=== PATIENT | female | born 1955 | race Caucasian/White ===

== ENCOUNTER 2018-01-07 10:59 | Outpatient (CLI) | payer BC | END 2018-01-07 11:00 | disposition home or self-care (01) | LOC: BICMAMMO 10:59 | PROVIDERS: ATTEND Obstetrics & Gynecology | DX: Z12.31 Encounter for screening mammogram for malignant neoplasm of breast (principal); Z13.820 Encounter for screening for osteoporosis; M85.89 Other specified disorders of bone density and structure, multiple sites; R92.1 Mammographic calcification found on diagnostic imaging of breast | CPT/HCPCS: 77063; 77067; 77080 ==

== ENCOUNTER 2018-05-27 05:39 | Day surgery (SDC) | payer BC ==
[2018-05-26 09:43] VITALS: BMI 33.6
[2018-05-27] MEDS ORDERED: Fentanyl 100 MCG/2 ML VIAL ONE ×2 (06:40→06:54)
[2018-05-27] MEDS ORDERED: Midazolam HCl 2 mg/2 ml Vial ONE ×2 (06:40→06:54)
[2018-05-27] MEDS ORDERED: Bupivacaine PF 0.5% 30 ML VIAL ONE (06:49)
[2018-05-27] MEDS ORDERED: Bacitracin Zinc Ointment 30 gm TUBE ONE (06:49)
[2018-05-27] MEDS ORDERED: Propofol 500 MG/50 ML VIAL ONE (06:54)
[2018-05-27 06:55] LABS: Bilirubin Negative (Negative); Blood, Urine Large (Negative); Clarity CLEAR (Clear); Glucose, Urine (Dipstick) Negative (Negative); Leukocyte Trace (Negative); Nitrite Negative (Negative); Protein, Urine (Dipstick) 30 mg/dL (Neg-Trace); Specific Gravity, Urine 1.013 (1.002-1.036); Urobilinogen 0.2 mg/dL (0.2-1.0)
[2018-05-27 07:01] LABS: Urine Culture Reflex No No
[2018-05-27] MEDS ORDERED: Lidocaine 1% (PF) 30 ML VIAL ONE (07:06)
[2018-05-27] MEDS ORDERED: CEFAZOLIN 2 GM/50 ML BAG ONE ×2 (07:15)
[2018-05-27 07:16] LABS: White Blood Cell (WBC) Count 7.5 thou/uL (4.8-10.8)
[2018-05-27 07:17] LABS: #Basophils 0.1 thou/uL (0.0-0.2); #Eosinphils 0.4 thou/uL (0.0-0.7); #Lymphocytes 2.1 thou/uL (1.20-3.40); #Monocytes 0.6 thou/uL (0.11-0.59); #Neutrophils 4.3 thou/uL (1.40-6.50); %Basophils 1.1 % (0.0-1.0); %Eosinophils 5.9 % (0.0-10.0); %Lymphocytes 28.4 % (21.0-51.0); %Monocytes 7.6 % (0.0-10.0); %Neutrophils 57.1 % (42.0-75.0); Hemoglobin 12.5 g/dL (12.0-16.0); Mean Corpuscular HGB CONC 33.1 g/dL (32.0-36.0); Mean Corpuscular Hemoglobin 29.7 pg (27.0-31.0); Mean Corpuscular Volume 89.9 fL (78.0-98.0); Mean Platelet Volume 8.1 fL (7.4-10.4); Platelet Count 283 thou/uL (130-400); RBC Distribution Width 12.2 % (11.5-14.5)
[2018-05-27] MEDS ORDERED: Betamet Acet/Betamet Na Ph 30 MG/5 ML VIAL ONE (07:26)
[2018-05-27] MEDS ORDERED: Ketorolac Tromethamine 30 MG/ML VIAL ONE ×2 (08:50→16:02)
--- NOTE | 2018-05-27 12:39 | OP ---
DATE OF PROCEDURE: 05/27/2018 PREOPERATIVE DIAGNOSES: 1. Left hand Dupuytren's nodule. 2. Left middle finger A1 trigger digit. 3. Left middle finger flexor tenosynovitis. POSTOPERATIVE DIAGNOSES: 1. Left hand Dupuytren's nodule. 2. Left middle finger A1 trigger digit. 3. Left middle finger flexor tenosynovitis. PROCEDURE PERFORMED: 1. Left Dupuytren's nodule excision, middle finger palm. 2. Left middle finger A1 ashok release. 3. Left flexor digitorum superficialis and profundus radical flexor tenosynovectomy. 4. Left middle finger digital nerve neuroplasty. 5. Steroid injection, at end of procedure, 3 mL of betamethasone. SPECIMENS: 1. Left middle finger tenosynovium. 2. Left middle finger Dupuytren's nodule. COMPLICATIONS: None. TOURNIQUET TIME: 9 minutes. INDICATIONS: The patient with both painful nodule and triggering with swelling admittedly of the entire digit and stage 3 to 4 trigger, failed conservative treatment. DESCRIPTION OF PROCEDURE: After successful block anesthesia by Dr. Chambers, [facility], the patient was brought to the room, prepped and draped. Time-out was done appropriately identifying the long finger as the site of both A1 ashok triggering and the nodule, where the nodule was palpable and was approximately 9 mm. We made a zigzag incision using the normal long finger flexor crease in the MP joint and then Aleyda type incision to extend approximately 5 mm, where the nodule was located. This was carried after exsanguination of the limb and inflation of the tourniquet to 250 mmHg pressure. Incision was carried through the skin and subcutaneous tissue and the nodule was found to be almost 1 cm in width and approximately 4 mm in depth. It was almost adherent to the digital nerve on the radial side of the middle finger that required a formal neuroplasty over 2 cm area to separate it from the nerve. We then lifted it out along with some skin and the overlying portion over the flexor tendon sheath. Flexor tendon sheath from here into the A1 ashok was quite edematous to perform a formal flexor tenosynovectomy of the digitorum profundus and superficialis. The specimen would now be the harvested nodule with skin as well as the flexor tenosynovium. We then released the A1 ashok with a [place] blade in midline, inspected the flexor tendon, there was no mass seen deep or around them. Nerve was free. We released the tourniquet and obtained hemostasis. We sent the specimen to the lab as listed above. We then obtained hemostasis and closed the incision with interrupted 4-0 nylon in a mattress pattern. Bulky dressing was applied along with a sugar-tong splint and no injection was given because there was a block. The patient left the operating room without evidence of anesthetic or operative complication. Job ID: [id number]
[2018-05-27] MEDS ORDERED: Bupivacaine HCl 0.5%/Epinephrine 1:200,000/PF 30 ml Vial ONE (14:22)
[2018-05-27] MEDS ORDERED: PROPOFOL 200 MG/20 ML VIAL ONE (16:02)
[2018-05-27] MEDS ORDERED: Lidocaine 1% PF 5 ML VIAL ONE (16:02)
[2018-05-27] MEDS ORDERED: Ondansetron PF 4 MG/2 ML Vial ONE (16:02)
== END 2018-05-27 09:12 | disposition home or self-care (01) ==
LOC: SDC 05:39
PROVIDERS: ATTEND Orthopaedic Surgery Hand Surgery
PROC: 01Q60ZZ Repair Radial Nerve, Open Approach (ICD-10-PCS; principal; 2018-05-27)
PROC: 0LN80ZZ Release Left Hand Tendon, Open Approach (ICD-10-PCS; principal; 2018-05-27)
PROC: 0JBK0ZZ Excision of Left Hand Subcutaneous Tissue and Fascia, Open Approach (ICD-10-PCS; principal; 2018-05-27)
PROC: 0LB80ZZ Excision of Left Hand Tendon, Open Approach (ICD-10-PCS; principal; 2018-05-27)
DX: M65.332 Trigger finger, left middle finger (principal); M72.0 Palmar fascial fibromatosis [Dupuytren]; M65.842 Other synovitis and tenosynovitis, left hand; E03.9 Hypothyroidism, unspecified; K21.9 Gastro-esophageal reflux disease without esophagitis; Z90.710 Acquired absence of both cervix and uterus; Z88.5 Allergy status to narcotic agent; Z79.899 Other long term (current) drug therapy
CPT/HCPCS: 36415; 81003; 85025; 88304; 88305; J0670; J0702; J1885; J2001; J2250; J2405; J2704; J3010; S0020

== ENCOUNTER 2018-11-06 05:43 | Observation (INO) | payer BC ==
[2018-11-06 06:33] LABS: #Basophils 0.1 thou/uL (0.0-0.2); #Eosinphils 0.2 thou/uL (0.0-0.7); #Lymphocytes 1.9 thou/uL (1.20-3.40); #Monocytes 0.6 thou/uL (0.11-0.59); #Neutrophils 7.3 thou/uL (1.40-6.50); %Basophils 0.5 % (0.0-1.0); %Eosinophils 1.9 % (0.0-10.0); %Lymphocytes 18.9 % (21.0-51.0); %Monocytes 5.7 % (0.0-10.0); %Neutrophils 73.1 % (42.0-75.0); Hemoglobin 12.3 g/dL (12.0-16.0); Mean Corpuscular HGB CONC 32.5 g/dL (32.0-36.0); Mean Corpuscular Hemoglobin 29.3 pg (27.0-31.0); Mean Corpuscular Volume 90.1 fL (78.0-98.0); Mean Platelet Volume 7.7 fL (7.4-10.4); Platelet Count 315 thou/uL (130-400); RBC Distribution Width 12.2 % (11.5-14.5)
[2018-11-06 06:40] LABS: ALT (SGPT) 25 U/L (8-55); AST (SGOT) 28 U/L (5-34); Albumin 4.1 g/dL (3.4-4.8); Alkaline Phosphatase 98 U/L (40-150); Anion Gap 14 mmol/L (10-20); BUN (Urea Nitrogen) 14 mg/dL (9.8-20.1); Bilirubin, Total 0.3 mg/dL (0.2-1.2); CK (CPK) 218 U/L (29-168); Calc. Creatinine Clearance 0 mL/min (70-130); Calcium 10.1 mg/dL (7.8-10.44); Carbon Dioxide 28 mmol/L (23-31); Chloride 101 mmol/L (98-107); Estimated GFR-MDRD 53; Glucose 142 mg/dL (80-115); Lipase 27 U/L (8-78); Potassium 3.1 mmol/L (3.5-5.1); Protein, Total 7.1 g/dL (6.0-8.3); Sodium 140 mmol/L (136-145)
[2018-11-06] MEDS ORDERED: Nitroglycerin 0.4 MG TAB 1 EACH ONE (06:53)
--- NOTE | 2018-11-06 08:34 | RAD ---
PA CHEST: HISTORY: Chest pain. FINDINGS: Lungs appear clear. No infiltrate identified. Mild elevation of the right hemidiaphragm. Vasculatu re normal. Heart size normal. IMPRESSION: Mild elevated right hemidiaphragm. Chest is otherwise unremarkable. POS: [facility]
[2018-11-06 09:33] LABS: Troponin I 0.017 ng/mL (< 0.028)
[2018-11-06] MEDS ORDERED: Nitroglycerin 0.4 MG TAB (25 Tab Bottle) PO PRN (09:50)
[2018-11-06] MEDS ORDERED: Acetaminophen 325 MG TAB PO PRN (09:50)
[2018-11-06] MEDS ORDERED: Sodium Chloride 0.9% 1,000 ML IV SCH (10:00)
[2018-11-06 10:29] LABS: Cardiac Risk 2.4 (Less than 4.5)
[2018-11-06] MEDS ORDERED: Aspirin 325 mg Enteric Coated Tablet PO SCH (11:15)
--- NOTE | 2018-11-06 16:03 | SS ---
DATE OF ADMISSION: 11/06/2018 DATE OF DISCHARGE: 11/06/2018 REASON FOR ADMISSION: Chest pain. HISTORY OF PRESENTING ILLNESS: The patient gives history of chest pain all across her chest. This lasted for nearly 3 hours. This woke her up around 2 a.m. The pain was 5 to 6 out of 10 in intensity. The patient stayed at home until 5:30 to see if it goes away, but finally came to ER as it continued. She did not have any relief with medicines at home. No cough or expectoration. No history of fever. No prior stress test done. No fever at home. PAST MEDICAL AND SURGICAL HISTORY: 1. History of hiatal hernia. 2. Hypothyroidism. 3. Mood disorder. 4. She has had prior endoscopy done 2 years back. No peptic ulcers were seen. 5. Left hand trigger finger surgery. 6. Hysterectomy. 7. Tonsillectomy. 8. Prior mammograms were normal. 9. Prior colonoscopy showed polyps, but no cancer as such. CURRENT MEDICATIONS: 1. Lansoprazole 30 mg daily. 2. Effexor 75 mg 2 pills daily. 3. Synthroid 75 mcg daily. ALLERGIES: ALLERGIC TO CODEINE. PERSONAL HISTORY: Does not abuse alcohol or drugs. No history of smoking. FAMILY HISTORY: Mother is alive. She is 92 years old. Father at the age of 90 years. He has had history of diabetes. CODE STATUS: Full. Power of estate attorney is her . REVIEW OF SYSTEMS: CONSTITUTIONAL: Negative for weight loss or gain, ability to conduct usual activities. SKIN: Negative for rash, itching. EYES: Negative for double vision, pain. ENT/MOUTH: Negative for nose bleeding, neck stiffness, pain, tenderness. CARDIOVASCULAR: Negative for palpitations, dyspnea on exertion, orthopnea. RESPIRATORY: Negative for shortness of breath, wheezing, cough, hemoptysis, fever or night sweats. GASTROINTESTINAL: Negative for poor appetite, abdominal pain, heartburn, nausea , vomiting, constipation, or diarrhea. GENITOURINARY: Negative for urgency, frequency, dysuria, nocturia. MUSCULOSKELETAL: Negative for pain, swelling. NEUROLOGIC/PSYCHIATRIC: Negative for anxiety, depression. ALLERGY/IMMUNOLOGIC: Negative for skin rash, bleeding tendency. PHYSICAL EXAMINATION: GENERAL: The patient is a 63-year-old female, who is currently not in any acute distress nor having any chest pain. VITAL SIGNS: Blood pressure 110/74, pulse 56 per minute, respiratory rate 16 per minute, temperature 98.2 degrees Fahrenheit, saturating 98% on room air. NECK: Supple. No elevated JVD. HEENT: Eyes; extraocular muscles intact. Pupils reacting to light. Oral cavity, mucous membranes are moist. No exudates or congestion. CARDIOVASCULAR SYSTEM: S1-S2 heard. Regular rhythm. RESPIRATORY SYSTEM: Air entry 1+ bilateral. No rales or rhonchi. ABDOMEN: Soft. Bowel sounds heard. No tenderness, rigidity, or guarding. EXTREMITIES: No peripheral edema or calf tenderness. VASCULAR SYSTEM: Peripheral pulses 2+ bilateral. No ischemic ulcers or gangrene. CENTRAL NERVOUS SYSTEM: No gross focal deficits noted. The patient is alert, awake, oriented well. PSYCHIATRIC SYSTEM: The patient's mood is euthymic. No hallucinations or delusions. LABORATORY DATA: White count of 10, H and H 12 and 37, platelet count 315, MCV is 90 with 73% neutrophils. Potassium 3.1, serum bicarb is 28, BUN 14, creatinine 1.0, serum glucose 142, troponin x2 negative. Total cholesterol 216, triglycerides 56, LDL 115, HDL 90. Chest x-ray done shows no acute infiltrate or cardiomegaly. There is mild elevation of right hemidiaphragm. EKG done shows sinus bradycardia at 55 beats per minute. CLINICAL IMPRESSION AND PLAN: We followed ACS evidence based protocol. Two sets of troponins were negative. The patient had exercise treadmill stress test which was equivocal. The patient did not want to stay for nuclear stress test. She would like to get this done as an outpatient. I have discussed her findings with Dr. Montesinos. Dr. Montesinos's office will likely call her for a PET scan in the coming week. We will continue her on aspirin 81 mg. We will also add Lipitor 20 mg daily. She can continue her Protonix, Synthroid, lansoprazole, Effexor as before. The patient will be shortly discharged from the emergency room 6. Please note, this is a same day observation admit-discharge summary. Job ID: [id number] MTDD
[2018-11-06] MEDS ORDERED: Levothyroxine Sodium 75 MCG TAB PO SCH (21:00)
[2018-11-07] MEDS ORDERED: Venlafaxine XR 37.5 MG CAP PO SCH (09:00)
[2018-11-07] MEDS ORDERED: Aspirin 325 mg Enteric Coated Tablet PO SCH (09:00)
--- NOTE | 2018-11-08 12:17 | EKG ---
Test Reason : Blood Pressure : / mmHG Vent. Rate : 055 BPM Atrial Rate : 055 BPM P-R Int : 186 ms QRS Dur : 084 ms QT Int : 486 ms P-R-T Axes : 032 031 057 degrees QTc Int : 464 ms Sinus bradycardia Otherwise normal ECG Confirmed by VICTOR MANUEL HOLLAND ([id number]), editorial specialist EDNA RKISHNA ([id number]) on 11/08/2018 12:16:58 PM Referred By: Confirmed By:VICTOR MANUEL HOLLAND
== END 2018-11-06 15:34 | disposition home or self-care (01) ==
LOC: ERS 05:43 → ERHOLD 08:30
PROVIDERS: ADMIT Internal Medicine; ATTEND Internal Medicine
DX: R07.9 Chest pain, unspecified (principal); E03.9 Hypothyroidism, unspecified; F39 Unspecified mood [affective] disorder; Z79.899 Other long term (current) drug therapy; Z88.5 Allergy status to narcotic agent
CPT/HCPCS: 36415; 36416; 71045; 80053; 80061; 82550; 83690; 84484; 85025; 93005; 93017; 94760; G0378

== ENCOUNTER 2019-01-15 12:10 | Observation (INO) | payer BC ==
[~2019-01-15 12:10] MED LIST: ISOVUE-370 76%-LOCM 1 ML ONE
[2019-01-15] MEDS ORDERED: Ondansetron PF 4 MG/2 ML Vial ONE ×2 (12:37→14:47)
[2019-01-15] MEDS ORDERED: Rocuronium Bromide 10 MG/ML (10ML VIAL) ONE (12:37)
[2019-01-15] MEDS ORDERED: PROPOFOL 200 MG/20 ML VIAL ONE (12:37)
[2019-01-15] MEDS ORDERED: Lidocaine 1% PF 5 ML VIAL ONE (12:37)
[2019-01-15] MEDS ORDERED: Glycopyrrolate 0.2 MG/ML 5 ML SYRINGE ONE (12:37)
[2019-01-15] MEDS ORDERED: ePHEDrine 50 MG/ML VIAL ONE (12:37)
[2019-01-15 12:40] LABS: #Eosinphils 0.1 thou/uL (0.0-0.7); #Lymphocytes 1.7 thou/uL (1.20-3.40); #Monocytes 1.4 thou/uL (0.11-0.59); #Neutrophils 15.8 thou/uL (1.40-6.50); %Basophils 0.1 % (0.0-1.0); %Eosinophils 0.3 % (0.0-10.0); %Lymphocytes 8.9 % (21.0-51.0); %Monocytes 7.3 % (0.0-10.0); %Neutrophils 83.4 % (42.0-75.0); Hemoglobin 12.3 g/dL (12.0-16.0); Mean Corpuscular HGB CONC 34.3 g/dL (32.0-36.0); Mean Corpuscular Hemoglobin 30.4 pg (27.0-31.0); Mean Corpuscular Volume 88.7 fL (78.0-98.0); Mean Platelet Volume 7.9 fL (7.4-10.4); Platelet Count 274 thou/uL (130-400); RBC Distribution Width 12.7 % (11.5-14.5); Red Blood Cell (RBC) Count 4.04 mill/uL (4.20-5.40)
--- NOTE | 2019-01-15 12:43 | RAD ---
XR Chest 1 View Portable HISTORY: Chest pain COMPARISON: 11/06/2018 FINDINGS: The heart size is normal. There is continued elevation of the right hemidiaphragm The lungs are well expanded without focal areas of consolidation, pneumothorax or pleural effusions. There are degenerative changes in the spine IMPRESSION: No radiographic evidence of acute cardiopulmonary process.
[2019-01-15 13:02] LABS: ALT (SGPT) 28 U/L (8-55); AST (SGOT) 31 U/L (5-34); Albumin 4.3 g/dL (3.4-4.8); Alkaline Phosphatase 122 U/L (40-150); Anion Gap 11 mmol/L (10-20); BUN (Urea Nitrogen) 12 mg/dL (9.8-20.1); Bilirubin, Total 0.8 mg/dL (0.2-1.2); Calc. Creatinine Clearance 0 mL/min (70-130); Carbon Dioxide 29 mmol/L (23-31); Chloride 98 mmol/L (98-107); Estimated GFR-MDRD 70; Globulin 3.2 g/dL (2.4-3.5); Glucose 104 mg/dL (80-115); Lipase 13 U/L (8-78); Potassium 3.2 mmol/L (3.5-5.1); Protein, Total 7.5 g/dL (6.0-8.3); Sodium 135 mmol/L (136-145)
[2019-01-15 13:23] LABS: Bilirubin Negative (Negative); Blood, Urine 2+ (Negative); Clarity Clear (Clear); Glucose, Urine (Dipstick) Normal (Negative); Leukocyte Negative Leu/uL (Negative); Nitrite Negative (Negative); Protein, Urine (Dipstick) 10 mg/dL (Neg-Trace); RBC/HPF Greater than 50 HPF (0-3); Squamous Epithelial 0-3 HPF (0-3); Urobilinogen Normal mg/dL (Less than 2)
[2019-01-15 13:31] LABS: Bacteria/HPF None Seen HPF (None Seen)
--- NOTE | 2019-01-15 14:35 | CT ---
CTA Angio Chest W WO Con History: Chest pain Comparison: Radiograph same day Findings: CT angiogram chest performed after the intravenous administration of contrast. 3-D renderin g provided. No proximal segmental pulmonary arterial filling defect. No pericardial effusion. There is a stone within the gallbladder neck with distention of the gallbladder. No pneumothorax. No effusion. Mild bibasilar atelectasis. Lungs are clear. No pneumothorax. No effusi on. No acute osseous abnormality. Impression: 1. No proximal segmental pulmonary arterial filling defect. 2. Findings concerning for acute cholecystitis. Ultrasound recommended. Recommend correlation with la b values.
[2019-01-15] MEDS ORDERED: Morphine 4 MG/ML VIAL ONE (14:47)
--- NOTE | 2019-01-15 15:18 | ULT ---
Exam: Right upper quadrant ultrasound: HISTORY: Chest pain since yesterday. Back pain. COMPARISON: CTA chest on 01/15/2019. FINDINGS: Liver: Within normal limits Gallbladder: There is a large calculus seen in the neck of the gallbladder measuring approximately 2 cm. The gallbladder is distended and dilated measuring 12 cm in length. No gallbladder wall thickening or pericholecystic fluid is identified. Common bile duct: The common duct is normal in caliber measuring 5 mm in diameter. Pancreas: Limited visualized portions of the pancreas demonstrate a normal sonographic appearance. Right kidney: Right kidney demonstrates a normal sonographic appearance. The right kidney measures 8 .6 cm in length. IVC: The visualized IVC demonstrates a normal sonographic appearance. IMPRESSION: Cholelithiasis with a large gallbladder calculus in the gallbladder neck with resultant distention an d dilatation of the gallbladder with gallbladder measuring 12 cm in length. No gallbladder wall thickening or pericholecystic fluid is seen. The common duct is normal in caliber.
[2019-01-15] MEDS ORDERED: Iothalamate Meglumine 60% 50 ML VIAL FS ONE (16:06)
[2019-01-15] MEDS ORDERED: Bupivacaine/Epinephrine 0.25% 30 ML VIAL ONE (16:06)
[2019-01-15] MEDS ORDERED: Fentanyl 100 MCG/2 ML VIAL ONE (16:14)
[2019-01-15] MEDS ORDERED: Midazolam HCl 2 mg/2 ml Vial ONE (16:14)
--- NOTE | 2019-01-15 16:44 | CON ---
DATE OF CONSULTATION: 01/15/2019 REASON FOR CONSULTATION: Preoperative evaluation. PRIMARY WIRE COILER: Too Montesinos MD. HISTORY OF PRESENT ILLNESS: Ms. Schofield is a very pleasant 63-year-old white female, who I signed in the office for the first time back in November 13; at this time, she was in the office being evaluated for chest pain. She was admitted to the hospital with an episode of pain, which lasted for 3 hours in the middle of the night, woke her up. She came into the hospital where she received a treadmill only stress test, which was equivocal and was discharged home with followup with Cardiology. She came to see me and a stress test and an echo was ordered. Lexiscan was done and it showed an equivocal finding on the anterior wall, so she was scheduled to have a heart catheterization this coming Saturday. She started having chest pains again earlier this week. She was on a trip, so she could not come to the ER. She wanted to wait to be back in home. Eventually, she continued to have chest pain. She was advised to go to the ER. She presented today with the same type of pain that she has been having in the last few months. She had negative troponins, but she had a significantly elevated white count. Her white count was 19,000 with 83% neutrophils, so a CT of the chest was done as I was concerned for pleurisy of some sort and source and the CT showed no evidence of pulmonary embolism, but had findings suggestive of acute cholecystitis, so a right upper quadrant ultrasound was performed that showed cholelithiasis with a large gallbladder calculus in the gallbladder neck with resultant distention, dilatation of the gallbladder with gallbladder measuring 12 cm in length with no thickening or pericholecystic fluid. Secondary to this, she was diagnosed with acute cholecystitis and is scheduled to have laparoscopic cholecystectomy later today. Ms. Schofield has negative troponins and on her echo, her LV function is normal. PAST MEDICAL HISTORY: 1. Gastroesophageal reflux disease. 2. Anxiety. 3. Hiatal hernia. 4. Prediabetes. 5. Hypothyroidism. PAST SURGICAL HISTORY: 1. Hysterectomy in 1992. 2. Tonsillectomy. OUTPATIENT MEDICATIONS: 1. Atorvastatin 20 mg a day. 2. Aspirin 81 a day. 3. Pantoprazole 40 mg a day. 4. Venlafaxine 75 mg a day. 5. Synthroid 75 mcg a day. 6. Restasis. 7. Multivitamin. 8. Calcium. 9. Fish oil. 10. Vitamin D3. FAMILY HISTORY: Father at age 90 with diabetes. Mother is alive and is 93 years old. She has an uncle with heart disease. Siblings are alive, one has asthma. No early coronary artery disease. SOCIAL HISTORY: No alcohol, tobacco, or drugs. ALLERGIES: CODEINE GIVES HER VOMITING AND HEADACHE. REVIEW OF SYSTEMS: A 12-point review of systems was done and was all negative unless stated in the history of present illness. PHYSICAL EXAMINATION: VITAL SIGNS: Temperature 98.2, pulse 78, respiratory rate 18, saturating 98% on room air, and blood pressure 138/62. GENERAL: Awake, alert, and oriented x3. No distress. HEENT: Normocephalic and atraumatic. NECK: Supple. LUNGS: Clear. CARDIOVASCULAR: S1 and S2. No S3 or S4. No murmurs. ABDOMEN: Soft. Positive bowel sounds. Alexander sign is negative. McBurney sign is negative. EXTREMITIES: No edema. SKIN: Warm and dry. LABORATORY DATA: Laboratory work was reviewed; CBC with a white count of 19,000, hemoglobin of 12, hematocrit 35, platelet count of 274. Chemistry with a sodium of 135, potassium is 3.2, chloride of 98, carbon dioxide of 29, anion gap of 11, BUN of 12, creatinine 0.82, GFR of 70, glucose of 104, calcium 10. AST, ALT, and alkaline phosphatase are all normal. Troponin I is undetectable x1. Lipase is 13. Albumin is 4.3. UA with 2+ blood, greater than 52 red cells, and 4 to [address] white cells[address] EKG was reviewed. CT of the chest was reviewed. Abdominal ultrasound was reviewed and chest x-ray was reviewed. ASSESSMENT: 1. Preoperative evaluation. 2. Acute cholecystitis. 3. Equivocal stress test. PLAN: She had an equivocal stress test with equivocal anterior ischemia versus artifact. This would be an intermediate risk test, surgery would be intermediate risk. She has the same pain right now that is most likely coming from her gallbladder that she has had since October and every time she has been evaluated by myself. She continues to have a fairly benign abdominal physical exam, however, more than likely with this elevation in white count, this is the source of her symptoms. She should be able to proceed with the understood risks of surgery. She is probably going to have to have a heart catheterization rescheduled. However, there is no indication to delay this life-saving surgery with the level of risk . Thank you for letting us to participate in the care of your patient. We will follow. Job ID: [id number]
[2019-01-15 17:02] LABS: Prothrombin Time 13.4 SEC (12.0-14.7)
[2019-01-15 17:03] LABS: PTT 28.7 SEC (22.9-36.1)
[2019-01-15 17:22] LABS: Troponin I 0.023 ng/mL (< 0.028)
--- NOTE | 2019-01-15 17:25 | HP ---
HISTORY OF PRESENT ILLNESS: Ms. Schofield is a 63-year-old woman, who presented to emergency department today with recurrent epigastric right upper quadrant abdominal pain. She first experienced similar pain about eight weeks ago, at which time, she presented to the emergency department and underwent a complete cardiac workup. She was evaluated by Cardiology and anticipating an elective cardiac catheterization in the interim. The patient admits to abdominal bloating and frequent flatulence over the last 2 weeks. She denies any fevers or chills. This morning approximately 2 hours after breakfast, she has experienced similar pain this time worse than before and radiating to the back and associated with multiple episodes of nausea and 2 bouts of nonbilious emesis. She admits to some chills, although no recorded fever. She has been having multiple loose bowel movements per day over the last 2 days. PAST MEDICAL HISTORY: Pertinent for gastroesophageal reflux disease, hiatal hernia, hyperlipidemia, hypothyroidism, and chronic depression. PAST SURGICAL HISTORY: Pertinent for total abdominal hysterectomy, tonsillectomy and adenoidectomy, left trigger finger release as well as bladder suspension. SOCIAL HISTORY: She is , lives at home with her . She denies any cigarette smoking or illicit drug abuse. She admits to occasional intake of ethanol in very moderate amounts. She is a retired dump truck driver off highway. FAMILY HISTORY: Noncontributory for this patient's age. PREHOSPITALIZATION MEDICATION: This includes, 1. Effexor 75 mg p.o. daily. 2. Lansoprazole 30 mg p.o. daily. 3. Levothyroxine 75 mcg p.o. daily. ALLERGIES: TO CODEINE. REVIEW OF SYSTEMS: 10-point review of systems essentially unremarkable except as stated in past medical history and chief complaint. PHYSICAL EXAMINATION: GENERAL: This reveals a 63-year-old normally developed woman, who is otherwise coherent, interactive, and appears stated age. The patient is alert and oriented x3, appears to be in no acute distress at time of my evaluation. VITAL SIGNS: Include blood pressure 156/80, pulse is 59, respiratory rate is 18, temperature 98.3 degrees Fahrenheit, and oxygen saturation is 100% on room air. HEENT: Pupils are equal, round, and reactive to light and accommodation. She has no scleral icterus present. HEART: Reveals regular rate and rhythm. No murmurs or gallops are auscultated. LUNGS: Clear to auscultation bilaterally. Her breathing is regular and nonlabored. ABDOMEN: Soft with right upper quadrant tenderness to palpation. She has a positive Alexander sign. Liver and spleen are otherwise nonpalpable below costal margin. EXTREMITIES: Reveal 2+ radial and pedal pulses bilaterally. No ankle edema is present. NEUROLOGIC: Reveals no focal deficits present. LABORATORY FINDINGS: Today include CBC with 9000 white blood cells, hemoglobin and hematocrit 12.3 and 35.9 respectively. Platelet count is 274,000. Metabolic profile; sodium 135, potassium is 3.2, chloride is 98, bicarb is 29, BUN is 12, creatinine is 0.82, glucose is 104, total bilirubin is 0.8, AST and ALT are 31 and 28 respectively. Alkaline phosphatase is also normal at 122. Serum lipase is normal at 13. I have personally reviewed CT scan of the abdomen and pelvis as well as the abdominal ultrasound, both of which are remarkable for distended gallbladder with solitary large calcified gallstone impacting gallbladder neck. Common bile duct is normal in diameter for this patient's age at 5 mm. IMPRESSION: 1. Acute cholecystitis with cholelithiasis. 2. History of chronic depression. 3. History of hyperlipidemia. 4. History of hypothyroidism. RECOMMENDATION: Laparoscopic cholecystectomy. Above findings and plan discussed with the patient and her . I have also informed her of the risks and benefits of the proposed surgery to include, but not limited to bleeding, infection, injury to bile duct or surrounding structures. This information was provided to the patient in the presence of her nurse. They both indicated understanding of information given. The patient has granted consent for this admission and surgical intervention. Job ID: [id number]
[2019-01-15] MEDS ORDERED: Ondansetron PF 4 MG/2 ML Vial IVP PRN (19:01)
[2019-01-15] MEDS ORDERED: Dextrose 50% Abboject 50 ML SYRINGE SLOW IVP PRN (19:01)
[2019-01-15] MEDS ORDERED: Dextrose 5% in Water 1,000 ML IV PRN (19:01)
[2019-01-15] MEDS ORDERED: traMADol HCl 50 MG TAB PO PRN (19:04)
[2019-01-15] MEDS ORDERED: Morphine 4 MG/ML VIAL SLOW IVP PRN (19:04)
[2019-01-15] MEDS ORDERED: Scopolamine 1.5 mg/72 hour Patch TD SCH (20:00)
[2019-01-15 20:50] VITALS: BMI 32.8
[2019-01-15] MEDS: Sodium Chloride 0.9% 1,000 ML IV SCH (22:34)
[2019-01-15] MEDS: Acetaminophen 500 MG TAB PO SCH (23:09)
--- NOTE | 2019-01-16 01:49 | OP ---
DATE OF PROCEDURE: 01/15/2019 PREOPERATIVE DIAGNOSES: Acute cholecystitis and cholelithiasis. POSTOPERATIVE DIAGNOSES: Acute cholecystitis and cholelithiasis. OPERATION PERFORMED: Laparoscopic cholecystectomy. ANESTHESIA: General endotracheal. ESTIMATED BLOOD LOSS: 50 mL. FLUIDS GIVEN: 1800 mL crystalloids. COUNTS: Sponge and instrument counts were verified as correct x2. COMPLICATIONS: None apparent at time of operation. INDICATIONS FOR OPERATION: A 63-year-old woman with recurrent postprandial epigastric right upper quadrant abdominal pain, presented to emergency department today with another episode of severe epigastric right upper quadrant abdominal pain, which started approximately 2-3 hours after breakfast. Clinical radiographic examination was consistent with acute cholecystitis with cholelithiasis for which the patient was brought to the operating room for cholecystectomy. Findings are consistent with markedly distended gallbladder with a solitary gallstone impacting gallbladder neck. Gallbladder in the usual anatomic location was completely encased by omental adhesions. DESCRIPTION OF PROCEDURE: Informed consent was obtained from the patient, was brought to the operating room and placed in supine position. Following general anesthesia, abdomen was sterilely prepped and draped in usual fashion. The skin below the umbilicus was infiltrated with 0.25% Marcaine with epinephrine. A small curvilinear infraumbilical incision was made using 11 scalpel. Umbilical stalk grasped with Dolly and elevator. Veress needle was inserted through the incision, placed in the peritoneal cavity through which the abdomen was insufflated with 3 L of CO2 gas. Intraabdominal pressure was noted at 2 mmHg. Following abdominal insufflation, Veress needle was removed and a 5 mm trocar introduced using a Visiport under laparoscopy. Laparoscopy confirmed proper placement of the port. No injuries to underlying structures. Additional laparoscopy reveals the right upper quadrant completely obscured by omental adhesions. Under direct laparoscopy, a 12 mm epigastric and two 5 mm right lateral subcostal ports were placed after the overlying skin was infiltrated with 0.25% Marcaine with epinephrine and appropriate incision was made. The patient was placed in a reverse Trendelenburg position, rotated to her left. I introduced a [place] dissector with cautery, using this to take down omental adhesions to expose the markedly distended gallbladder. I attempted to grasp the gallbladder with a Prestige grasper from the right lateral subcostal port without success. The gallbladder was then decompressed using an Endo suction catheter with cautery evacuating excess white bile. I then applied a Prestige grasper through the fundus of the gallbladder which was elevated cephalad. Omental adhesions were removed from the remainder of the gallbladder. Second Prestige grasper was introduced through the right medial subcostal port grasping the Janice's pouch which was retracted laterally. The cystic duct was carefully dissected free from the surrounding structures and divided between clips. Two clips were applied proximally and one clip at the junction of the cystic duct and gallbladder. The cystic artery was also carefully dissected free from surrounding structures and divided between clips in a similar fashion. The gallbladder itself was removed from the liver bed and passed off the operative field followed by transmission to Pathology. The gallbladder fossa was oozy. The patient is on chronic aspirin. I attempted to cauterize the bleeding points with minimum success. Therefore, was applied aiding immediate hemostasis. Finding no other pathology, laparoscopy was terminated. Fascia of the epigastric port was closed using 0 Vicryl suture and Endoclosure device under laparoscopy. The abdomen was desufflated. All ports and instruments removed and accounted for. Skin incision was closed using 4-0 Monocryl suture in subcuticular fashion. Dermabond was applied over incisional closure. The patient tolerated the operation without any apparent complication and was returned to recovery room in satisfactory condition. Job ID: [id number]
[2019-01-16] MEDS: traMADol HCl 50 MG TAB PO PRN ×2 (02:36→10:34)
[2019-01-16] MEDS: Sodium Chloride 0.9% 1,000 ML IV SCH (02:40)
[2019-01-16 05:09] LABS: #Basophils 0.1 thou/uL (0.0-0.2); #Lymphocytes 1.2 thou/uL (1.20-3.40); #Monocytes 1.2 thou/uL (0.11-0.59); #Neutrophils 14.7 thou/uL (1.40-6.50); %Basophils 0.3 % (0.0-1.0); %Eosinophils 0.1 % (0.0-10.0); %Lymphocytes 6.9 % (21.0-51.0); %Monocytes 7.1 % (0.0-10.0); %Neutrophils 85.6 % (42.0-75.0); Hemoglobin 10.3 g/dL (12.0-16.0); Mean Corpuscular HGB CONC 33.8 g/dL (32.0-36.0); Mean Corpuscular Hemoglobin 30.5 pg (27.0-31.0); Mean Corpuscular Volume 90.2 fL (78.0-98.0); Platelet Count 212 thou/uL (130-400); RBC Distribution Width 12.9 % (11.5-14.5); Red Blood Cell (RBC) Count 3.38 mill/uL (4.20-5.40); White Blood Cell (WBC) Count 17.2 thou/uL (4.8-10.8)
[2019-01-16 05:25] LABS: Anion Gap 11 mmol/L (10-20); BUN (Urea Nitrogen) 10 mg/dL (9.8-20.1); Calc. Creatinine Clearance 96 mL/min (70-130); Calcium 8.8 mg/dL (7.8-10.44); Carbon Dioxide 25 mmol/L (23-31); Chloride 103 mmol/L (98-107); Estimated GFR-MDRD 75; Glucose 111 mg/dL (80-115); Potassium 3.2 mmol/L (3.5-5.1); Sodium 136 mmol/L (136-145)
[2019-01-16 05:29] LABS: ALT (SGPT) 44 U/L (8-55); AST (SGOT) 55 U/L (5-34); Albumin 3.5 g/dL (3.4-4.8); Alkaline Phosphatase 102 U/L (40-150); Bilirubin, Direct 0.6 mg/dL (0.1-0.3); Bilirubin, Total 0.9 mg/dL (0.2-1.2); Protein, Total 6.2 g/dL (6.0-8.3)
[2019-01-16] MEDS: Acetaminophen 500 MG TAB PO SCH ×2 (06:05→11:34)
[2019-01-16] MEDS ORDERED: Potassium Chloride 20 MEQ TAB PO SCH (08:00)
[2019-01-16 08:47] VITALS: BP 98/63; TEMP 98.4
[2019-01-16] MEDS ORDERED: Venlafaxine XR 37.5 MG CAP PO SCH (09:00)
--- NOTE | 2019-01-16 12:10 | PDOC.CPN ---
- Subjective Date: 01/16/19 Time: 12:07 - Review of Systems General: denies: fever/chills, weight/appetite/sleep changes, night sweats, fatigue Respiratory: denies: cough, congestion, shortness of breath, exercise intolerance Cardiovascular: denies: chest pain, palpitation, edema, paroxysmal nocturnal dyspnea, orthopnea Gastrointestinal: denies: nausea, vomiting, diarrhea, constipation, abd pain, GI bleeding Musculoskeletal: denies: pain, tenderness, stiffness, swelling, arthritis/ arthralgias Neurological: denies: numbness, syncope, seizure, weakness - Objective Allergies/Adverse Reactions: Allergies Allergy/AdvReac Type Severity Reaction Status Date / Time codeine Allergy Nausea Verified 01/16/19 00:02 Visit Medications: Current Medications Acetaminophen (Tylenol) 1,000 mg PO Q6HR [facility] Last Admin: 01/16/19 11:34 Dose: 1,000 mg Albuterol/Ipratropium (Duoneb) 3 ml NEB Q4H PRN PRN Reason: Wheezing Dextrose/Water (Dextrose 50%) 25 gm SLOW IVP PRN PRN PRN Reason: Hypoglycemia Glucagon (Glucagon) 1 mg IM PRN PRN PRN Reason: Hypoglycemia Dextrose/Water (D5w) 1,000 mls @ 0 mls/hr IV .Q0M PRN PRN Reason: Hypoglycemia Ondansetron HCl (Zofran) 4 mg IVP Q6H PRN PRN Reason: Nausea Potassium Chloride (K-Dur) 40 meq PO BID-WM [facility] Last Admin: 01/16/19 10:34 Dose: 40 meq Scopolamine (Transderm Scop) 1.5 mg TD Q3D [facility] Last Admin: 01/15/19 22:34 Dose: Not Given Sodium Chloride (Flush - Normal Saline) 10 ml IVF PRN PRN PRN Reason: Saline Flush Tramadol HCl (Ultram) 50 mg PO Q6H PRN PRN Reason: Moderate Pain (4-6) Tramadol HCl (Ultram) 100 mg PO Q6H PRN PRN Reason: Severe Pain (7-10) Last Admin: 01/16/19 10:34 Dose: 100 mg Venlafaxine HCl (Effexor Xr) 37.5 mg PO DAILY [facility] Last Admin: 01/16/19 10:36 Dose: 37.5 mg Vital Signs & Weight: Vital Signs Temp Pulse Resp BP Pulse Ox 01/16/19 08:20 94 L 01/16/19 08:15 98.4 F 74 16 98/63 94 L 01/16/19 04:05 98.7 F 64 16 105/70 95 Weight 185 lb - Physical Exam General: alert & oriented x3, no apparent distress HEENT: mucus membranes moist, normocephaly Neck: supple neck, midline trachea Cardiac: regular rate and rhythm, no murmur Lungs: clear to auscultation, normal breath sounds Neuro: grossly intact, coordination normal Abdomen: active bowel sounds, soft, non-tender Skin: clear Musculoskeletal: normal range of motion, no pain - Labs Result Diagrams: 01/16/19 04:36 01/16/19 04:35 Troponin/CKMB Troponin I 0.023 ng/mL (< 0.028) 01/15/19 16:45 - Assessment/Plan Assessment/Plan: 1. Acute cholecystitis. 2. Chets pain, likley from cholecystitis. 3. S/P Lap [place]. PLAN; - Doing well. - No more chest pain at this time. - She may be discharged home any time from ,cardiac perspective. - Plan to have her follow up with me in office in 1 month to reschedule her LHC.
--- NOTE | 2019-01-17 04:20 | DIS ---
DATE OF ADMISSION: 01/15/2019 DATE OF DISCHARGE: 01/16/2019 DISCHARGING PHYSICIAN: Jose Roberto Bowers DO ADMITTING DIAGNOSES: Acute cholecystitis and cholelithiasis. DISCHARGE DIAGNOSES: Acute cholecystitis and cholelithiasis. OPERATION PERFORMED: Laparoscopic cholecystectomy on 01/15/2019, by Dr. Bowers. Please see a separate dictation for operative report. HISTORY AND HOSPITAL COURSE: A 63-year-old woman, who presented with recurrent postprandial epigastric to right upper quadrant abdominal pain. Clinical and radiographic examination were consistent with acute cholecystitis and cholelithiasis, for which the patient underwent uneventful laparoscopic cholecystectomy yesterday. Following surgery, the patient was admitted to surgical floor, where she remained at time of discharge. On postop day 1, she is ambulating with minimum difficulty. Her pain is adequately controlled on oral analgesics. She is tolerating general diet. Incisional wounds remain intact, clean, dry. No evidence of subcutaneous hematoma present. She has remained hemodynamically stable and afebrile through this hospitalization. DISCHARGE INSTRUCTIONS: The patient will be discharged home today with the following instructions; 1. She follows up with me in the Surgery Clinic in 2 weeks with a repeat CBC. 2. She is to resume all her pre-hospitalization medications as prescribed by her primary care physician except for aspirin, which she may resume one week from surgery. 3. She may take Tylenol 1000 mg p.o. q.6 hours p.r.n. pain alternating this with tramadol 50 mg 1 to 2 p.o. q.6 hours p.r.n. pain. 4. She is to call me with any questions or problems including exacerbation of abdominal pain, fever in excess of 101 degrees Fahrenheit, or any abnormal drainage from the incisional wounds present. 5. She may shower effective tomorrow. 6. She is to avoid weight lifting in excess of 20 pounds until she has been released by me. 7. She may not swim or soak herself in a bathtub until she has been released by me. 8. I have encouraged the patient to ambulate daily to avoid complications of venous thromboembolism. 9. She is to use the incentive spirometer as instructed, 7 to 10 times every hour while awake. 10. Above instructions were given to the patient in the presence of her and her adult son. 11. They all indicated understanding information given. 12. I have answered their questions. The patient has expressed gratitude for the care rendered to her during this hospitalization and surgery. Job ID: [id number]
== END 2019-01-16 12:05 | disposition home or self-care (01) ==
LOC: ERS 12:10 → SJJU 19:13 → SURG A 20:31
PROVIDERS: ADMIT Surgery; ATTEND Surgery
PROC: 0FT44ZZ Resection of Gallbladder, Percutaneous Endoscopic Approach (ICD-10-PCS; principal; 2019-01-16)
DX: K80.12 Calculus of gallbladder with acute and chronic cholecystitis without obstruction (principal); K21.9 Gastro-esophageal reflux disease without esophagitis; K44.9 Diaphragmatic hernia without obstruction or gangrene; E78.5 Hyperlipidemia, unspecified; E03.9 Hypothyroidism, unspecified; F32.9 Major depressive disorder, single episode, unspecified; Z79.899 Other long term (current) drug therapy; Z88.5 Allergy status to narcotic agent
CPT/HCPCS: 36415; 71045; 71275; 76705; 80048; 80053; 80076; 81003; 81015; 83690; 84484; 85025; 85610; 85730; 86850; 86900; 86901; 87086; 88304; 93005; 96361; 96374; 96375; G0378; J1610; J2001; J2250; J2270; J2405; J2704; J3010; J3490; Q9966

== ENCOUNTER 2020-03-31 08:42 | Outpatient (CLI) | payer BC ==
--- NOTE | 2020-03-31 10:18 | BD ---
BONE DENSITOMETRY USING DEXA: Date: 03/31/2020 HISTORY: Postmenopausal screening for osteoporosis. FINDINGS: Lumbar Spine: BMD (g/cm2) L1 0.790 T-Score: -1.8 Z-Score: -0.2 L2 0.816 T-Score: -1.9 Z-Score: 0.1 L3 0.858 T-Score: -2.1 Z-Score: -0.1 L4 0.909 T-Score: -1.4 Z-Score: 0.6 L1-L4 0.847 T-Score: -1.8 Z-Score: 0.1 Femoral Neck: 0.638 T-Score: -1.9 Z-Score: -0.3 Total Femur: 0.882 T-Score: -0.5 Z-Score: 0.8 There has been interval reduction of 5% in the bone mineral density of the lumbar spine and improveme nt of 0.7% in the bone mineral density of the proximal femur since 08/01/2015. The 10 year fracture risk for a major osteoporotic fracture is 9.7% and for a hip fracture is 1.3%. IMPRESSION: Osteopenia. POS: AH
== END 2020-03-31 08:43 | disposition home or self-care (01) ==
LOC: BICMAMMO 08:42
PROVIDERS: ATTEND Family Medicine
DX: Z13.820 Encounter for screening for osteoporosis (principal); M85.89 Other specified disorders of bone density and structure, multiple sites
CPT/HCPCS: 77080

== ENCOUNTER 2021-02-28 12:53 | Outpatient (CLI) | payer BC | END 2021-02-28 12:54 | disposition home or self-care (01) | LOC: BICMAMMO 12:53 | PROVIDERS: ATTEND Family Medicine | DX: Z12.31 Encounter for screening mammogram for malignant neoplasm of breast (principal) | CPT/HCPCS: 77063; 77067 ==

== ENCOUNTER 2021-09-04 09:22 | Outpatient (CLI) | payer BC | END 2021-09-04 09:23 | disposition home or self-care (01) | LOC: BICRAD 09:22 | PROVIDERS: ATTEND Family Medicine | DX: M41.34 Thoracogenic scoliosis, thoracic region (principal); M47.816 Spondylosis without myelopathy or radiculopathy, lumbar region; M47.814 Spondylosis without myelopathy or radiculopathy, thoracic region | CPT/HCPCS: 72072; 72100 ==

== ENCOUNTER 2022-04-12 13:23 | Outpatient (CLI) | payer BC | END 2022-04-12 13:24 | disposition home or self-care (01) | LOC: BICMAMMO 13:23 | PROVIDERS: ATTEND Family Medicine | DX: Z12.31 Encounter for screening mammogram for malignant neoplasm of breast (principal) | CPT/HCPCS: 77063; 77067 ==

== ENCOUNTER 2022-05-24 08:09 | Outpatient (CLI) | payer BC | END 2022-05-24 08:10 | disposition home or self-care (01) | LOC: BICMAMMO 08:09 | PROVIDERS: ATTEND Family Medicine | DX: Z13.820 Encounter for screening for osteoporosis (principal); N95.9 Unspecified menopausal and perimenopausal disorder; M85.89 Other specified disorders of bone density and structure, multiple sites | CPT/HCPCS: 77080 ==

== ENCOUNTER 2023-04-30 10:39 | Outpatient (CLI) | payer MEDICARE | END 2023-04-30 10:40 | disposition home or self-care (01) | LOC: BICRAD 10:39 | PROVIDERS: ATTEND Family Medicine | DX: B34.9 Viral infection, unspecified (principal); J32.0 Chronic maxillary sinusitis; J32.1 Chronic frontal sinusitis; R60.0 Localized edema | CPT/HCPCS: 70220; 71046 ==

== ENCOUNTER 2024-05-28 09:41 | Outpatient (CLI) | payer MEDICARE | END 2024-05-28 09:42 | disposition home or self-care (01) | LOC: BICMAMMO 09:41 | PROVIDERS: ATTEND Internal Medicine | DX: Z12.31 Encounter for screening mammogram for malignant neoplasm of breast (principal) | CPT/HCPCS: 77063; 77067 ==